=== PATIENT | female | born 2000 | race Caucasian/White ===

== ENCOUNTER 2020-07-15 22:20 | Emergency (ER) | payer OTHER, SELFPAY ==
[2020-07-15 22:21] VITALS: BP 136/85; PULSE 102; RESP 15; TEMP 37.2; O2SAT 98; BMI 19.1
[2020-07-15] MEDS: Lidocaine 1% (20 ml mdv) 20 ML Vial INFILT (22:44)
--- NOTE | 2020-07-15 22:44 | ED.VIS.LOWEX ---
HPI History of Present Illness Chief Complaint: Foreign Body Informant: patient Occured/Mechanism Mechanism/Context: Yes blunt trauma Onset/Context/Timing Onset: Today Context: Sudden Onset Timing: Continuous Narrative Narrative: Patient presents with splinter in her knee. Patient is otherwise healthy. She was at work today and walked into a pallet with some loose splinters. It went into her knee. She was unable to get it out and presented here. She has not tried anything for it. Tetanus Immunization: >10 years PFSH PFSH no medical history Home Medications No Known/Unobtainable [No Known Home Medications] 09/01/16 [History Last Taken Unknown] Allergy/AdvReac Type Severity Reaction Status Date / Time amoxicillin [From Augmentin] Allergy Unknown Verified 07/15/20 22:21 clavulanic acid Allergy Unknown Verified 07/15/20 22:21 [From Augmentin] no significant family history no surgical history Social History Smoking Status: Never smoker ROS ROS ED Constitutional Constitutional ED: Denies chills or fever(s) Eyes Eyes: Denies blurry vision or change in vision ENT ENT ED: Denies ear pain or sore throat Cardiovascular Cardiovascular: Denies chest pain or palpitations Respiratory/Chest Respiratory/Chest: Denies cough, dyspnea or dyspnea on exertion Gastrointestinal Gastrointestinal: Denies abdominal pain, nausea or vomiting Genitourinary Genitourinary ED: Denies dysuria or urinary frequency Musculoskeletal Musculoskeletal: Denies arthralgias or myalgias Integumentary Denies rash Neurologic Neurologic: Denies headache(s) or paresthesias Psychiatric Psychiatric: Denies anxiety or depression Endocrine Endocrinology: Denies polydipsia or polyuria Allergic/Immunologic Allergic/Immunologic ED: Denies urticaria EXAM Physical Exam Const Vital Signs: 07/15/20 22:21 Temperature 99.0 F Temperature Source Temporal Pulse Rate 102 H Respiratory Rate 15 Blood Pressure 136/85 H Blood Pressure Mean 102 Pulse Ox 98 Oxygen Delivery Method Room Air Positive well nourished and well developed General Appearance ED: well developed HEENT Reports normocephalic, head/scalp atraumatic and moist mucous membranes Eyes PERRL and EOMs intact bilaterally Neck no lymphadenopathy and supple General: Negative for tenderness Chest Wall inspection of chest normal Resp normal respiratory effort and clear to auscultation bilaterally Cardio regular rate, regular rhythm and no murmurs GI normal to inspection, nondistended, normoactive bowel sounds Palpation: Negative for tender, guarding or rebound tenderness present Back/Spine no CVA tenderness Cervical Spine: Negative for cervical spine tenderness Thoracic Spine / Upper Back: Negative for thoracic spinal tenderness Extremity normal to inspection General Extremety ED: Negative for tenderness General Extremity: other findings Other Details: Patient does have a small puncture wound overlying the patella of the left knee. There is minimal bleeding. Neuro oriented x3 and CN's II-XII intact bilaterally Neuro Narrative: No focal deficits appreciated. Sensorium / Orientation: alert Psych mental status grossly normal Skin no rashes or lesions noted, no wounds and skin turgor normal MDM MDM MDM Narrative Medical decision making narrative: Patient presents with splinter in the knee. The area was cleansed. It was anesthetized with 2 cc of 1% lidocaine without epinephrine. The splinter was actually lateral to the puncture wound. With an 11 blade, the incision was moved laterally. I was able to retract the splinter in 1 piece. Patient's tetanus will be updated. The wound was cleaned and dressed with bacitracin ointment. She was counseled on wound care and reasons to return. She will be discharged home. Impression 1. Splinter left knee with removal Discharge Plan Triage Chief Complaint: Foreign Body ED Provider: Bello Love Dx/Rx/DC Orders Instructions: ED Foreign Body Soft Tissue Prescriptions: No Action No Known Home Medications RF: 0 Primary Care Provider: Master Almanza Referrals: Master Almanza MD [Primary Care Provider] -
[2020-07-15] MEDS: Diphth,Pertuss(Acell),Tet Vac 0.5 ML Vial IM (22:48)
== END 2020-07-15 23:21 | disposition home or self-care (01) ==
LOC: ED 23:04
PROVIDERS: Emergency Provider Emergency Medicine
DX: S80.252A Superficial foreign body, left knee, initial encounter (principal); Z23 Encounter for immunization; W45.8XXA Other foreign body or object entering through skin, initial encounter; Y93.89 Activity, other specified; Y92.89 Other specified places as the place of occurrence of the external cause; Y99.0 Civilian activity done for income or pay
CPT/HCPCS: 10120; 90471; 90715; 99282

== ENCOUNTER 2024-05-08 02:19 | Emergency (ER) | payer BC, SELFPAY ==
[2024-05-08 02:21] VITALS: BP 132/89; PULSE 87; RESP 18; TEMP 36.8; O2SAT 100; BMI 18.8
--- NOTE | 2024-05-08 02:30 | CT_ITS ---
PROCEDURE: ABDOMEN/PELVIS W IV CONT ONLY REASON FOR EXAM: Low abdominal/pelvic pain, dizzy TECHNIQUE: Abdomen and pelvis CT with intravenous contrast. Coronal and sagittal reformatted images IV CONTRAST: 71 cc Isovue 370 COMPARISON: None. FINDINGS: Lung bases: Clear Liver: Unremarkable. Gallbladder: Unremarkable. Spleen: Unremarkable. Pancreas: Unremarkable. Adrenals: Unremarkable. Kidneys: Solitary right kidney. Punctate nonobstructing right intrarenal stone for example axial 67 and coronal 45. Left kidney is not present. Bladder: Unremarkable. Reproductive Organs: Appearance of cystic focus in the right adnexa measuring around 1.8 cm axial 126, coronal 50 with small to moderate amount of adjacent right pelvic free fluid. Intrauterine device appears centrally located. Bowel: Moderate amount of gas and stool within the colon without wall thickening. No bowel dilation. Appendix: Normal caliber appendix right pericolic gutter for example coronal 31 through 36 and axial 88. Lymph nodes: No suspicious lymph node enlargement. Vasculature: Major vascular structures are unremarkable. Peritoneum / Retroperitoneum: No free air. Bones: Unremarkable. CT/Abdomen/Pelvis W IV Cont ONLY IMPRESSION: 1.8 cm cystic focus right adnexa with small to moderate amount of adjacent righ t pelvic free fluid. May correlate further with pelvic ultrasound as warranted. Intrauterine device appears centrally located. Normal caliber appendix. Moderate amount of gas and stool within the colon without wall thickening. Solitary right kidney as above. One or more dose reduction techniques were used (e.g., Automated exposure contr ol, adjustment of the mA and/or kV according to patient size, use of iterative reconstruction technique). Reading Location: [id number]
--- NOTE | 2024-05-08 02:31 | ED.VIS.GI ---
HPI HPI - GI History of Present Illness Chief Complaint: Abd Pain Informant: patient and spouse/S.O. Narrative Narrative: Sudden lower abdominal/pelvic pain 30 minutes prior to arrival. States has ringing in ears afterwards. No urinary symptoms. No nausea or vomiting. No history ovarian issues. No history of similar. She has the IUD, thinks had a menstrual period earlier this month however is abnormal with the IUD. Allergies to Augmentin. Prior similar symptoms: No PFSH PFSH Medical History Asthma Home Medications ?Medication ?Instructions ?Recorded ?Last Taken ?Type No Known/Unobtainable [No Known 09/01/16 Unknown History Home Medications] Allergy/AdvReac Type Severity Reaction Status Date / Time amoxicillin (From Augmentin) Allergy Unknown Verified 05/08/24 02:20 clavulanic acid (From Allergy Unknown Verified 05/08/24 02:20 Augmentin) Social History Smoking Status: Never smoker ROS ROS ED Constitutional Constitutional ED: Denies chills, fever(s) or sweats ENT ENT ED: Denies sore throat Cardiovascular Cardiovascular: Denies chest pain, leg edema, palpitations or racing heartbeat Respiratory/Chest Respiratory/Chest: Denies cough, dyspnea or dyspnea on exertion Gastrointestinal Gastrointestinal: Reports abdominal pain; Denies diarrhea, nausea or vomiting Genitourinary Genitourinary ED: Denies dysuria, hematuria or urinary frequency Musculoskeletal Musculoskeletal: Denies back pain, extremity pain or neck pain Integumentary Denies rash or wounds Neurologic Neurologic: Denies headache(s), paresthesias or weakness EXAM Physical Exam Const Vital Signs: 05/08/24 02:21 Temperature 98.3 F Temperature Source Oral Pulse Rate 87 Respiratory Rate 18 Blood Pressure 132/89 H Blood Pressure Mean 103 Pulse Ox 100 Oxygen Delivery Method Room Air Positive well nourished and well developed General Appearance ED: well developed and NAD HEENT Reports moist mucous membranes normocephalic and atraumatic Eyes General Eye ED: Yes normal appearance of both eyes Neck full ROM Chest Wall Chest: Negative for tenderness Resp normal respiratory effort and normal air movement Effort and Inspection: symmetric chest movement; Negative for respiratory distress Cardio regular rate, regular rhythm and no murmurs Peripheral Pulses: pulses 2+ throughout GI normal to inspection, nondistended, normoactive bowel sounds GI Narrative: Tender lower abdomen/pelvic region. No guarding or rebound. Palpation: Negative for guarding or rebound tenderness present Extremity normal to inspection General Extremety ED: Negative for edema or tenderness General Extremity: Negative for edema Neuro oriented x3 and no sensory deficits noted Sensorium / Orientation: awake and alert Skin no rashes or lesions noted and no wounds MDM MDM MDM Narrative Medical decision making narrative: Interventions / MDM: Differential diagnosis: Ovarian cysts, pelvic pain Diagnosis considered but do not suspect: Appendicitis, CT negative. No clinical ovarian torsion. Obstructive kidney stone, however CT negative. My EKG interpretation: N/A Imaging independently reviewed and interpreted by myself: CT abdomen pelvis IV contrast: 1.87 right ovarian cyst pelvic free fluid. Normal appendix. Right sided nephrolithiasis punctate lesions no obstruction noted. External documents reviewed: N/A Test considered but not ordered:N/A ED course: Vital stable nontoxic nonsurgical abdomen. Lower abdominal/pelvic pain. She has IUD. IV established for basic labs and urine. hCG ordered. Will order CT abdomen pelvis IV contrast for further evaluation. IV Toradol ordered. 0400: Clinically improving symptoms labs stable urine negative. CT scan right ovarian cyst 1.8 cm with free fluid. Nonobstructing right kidney stones punctate lesions. Normal appendix. Urine small leukocytes 1+ bacteria, no urine symptoms. Urine culture sent. Discussed results with patient significant other. With her solitary kidney discussed using Tylenol up to 1 g every 6 hours. She does have a poacher wringer operator Dr. Breen to follow-up with. All her questions were answered. Re-evaluation: stable Disposition discussed with patient/family/significant other: Patient and significant other. Case discussed with consulting clinician: N/A This note was generated with [employer] dictation software. It may contain incorrect words, spelling, and punctuation that were not noted in checking the note before signing. Lab Data Attestation: I reviewed the patient's lab results. Labs: Laboratory Results - last 24 hr 05/08/24 05/08/24 02:26 02:38 WBC 10.9 RBC 4.57 Hgb 15.0 Hct 41.7 MCV 91.2 MCH 32.8 H MCHC 36.0 RDW Std Deviation 39.5 RDW Coeff of Jesse 11.9 Plt Count 174 MPV 11.1 Immature Gran % (Auto) 0.200 Neut % (Auto) 50.8 Lymph % (Auto) 37.7 Fisher % (Auto) 5.1 Eos % (Auto) 5.6 H Baso % (Auto) 0.6 Absolute Neuts (auto) 5.5 Absolute Lymphs (auto) 4.10 Nucleated RBC % 0 Sodium 138 Potassium 3.5 Chloride 106 Carbon Dioxide 24.0 Anion Gap 8 BUN 17 Creatinine 0.78 Estim Creat Clear Calc 78.67 Est GFR (MDRD) Af Amer 114 Est GFR (MDRD) Non-Af 95 BUN/Creatinine Ratio 21.7 H Glucose 113 H Calcium 8.8 Serum , Qual NEGATIVE Urine Color Yellow Urine Clarity Clear Urine pH 6.0 Ur Specific [place] 1.020 Urine Protein 100 H Urine Glucose (UA) Normal Urine Ketones Negative Urine Occult Blood Negative Urine Nitrite Negative Urine Bilirubin Negative Urine Urobilinogen Normal Ur Leukocyte Esterase 25 H Urine RBC 0 SEEN Urine WBC 0 SEEN Ur Squamous Epith Cells 0-5 SEEN Urine Bacteria 1+ Urine Mucus 0 SEEN Radiography Diagnostic Testing: Clinical Impression(s) from Imaging Studies Abdomen/Pelvis CT 05/08/24 02:30 IMPRESSION: 1.8 cm cystic focus right adnexa with small to moderate amount of adjacent right pelvic free fluid. May correlate further with pelvic ultrasound as warranted. Intrauterine device appears centrally located. Normal caliber appendix. Moderate amount of gas and stool within the colon without wall thickening. Solitary right kidney as above. One or more dose reduction techniques were used (e.g., Automated exposure control, adjustment of the mA and/or kV according to patient size, use of iterative reconstruction technique). Reading Location: [facility] Discharge Plan Triage Chief Complaint: Abd Pain ED Provider: Jay Toledo Dx/Rx/DC Orders Clinical Impression: Ovarian cyst, Pelvic pain, Right nephrolithiasis Instructions: ED Ovarian Cyst Prescriptions: No Action No Known Home Medications Stand Alone Forms: ED Work / School Excuse Primary Care Provider: Care Physician,No Primary Referrals: Terrie Preciado MD [Med Staff - Active Staff] - 1-2 Weeks Care Physician,No Primary [Primary Care Provider] - Activity Restrictions/Additional Instructions: CT scan normal appendix. You have punctate stones inside the right kidney nonobstructive. This does not cause pain symptoms. There is no obstructive stones. You have a 1.8 cm right sided ovarian cyst with free fluid. Likely small rupture is causing your symptoms. With your history of single kidney on the right side, use Tylenol up to 1 g every 6 hours as needed. Follow-up with your poacher wringer operator. Print Language: Stateless Disposition Disposition: Home, Self Care
[2024-05-08 02:37] LABS: Absolute Neutrophil Count 5.5 X10^3/uL (2.0-7.7); Basophil# 0.07 X10^3/uL; Basophil% 0.6 % (0-1); Eosinophil# 0.61 X10^3/uL; Eosinophils% 5.6 % (0-5); Hematocrit 41.7 % (37-47); Lymphocyte % 37.7 % (19-41); Mean Corpuscular Hgb 32.8 pg (27.0-32.0); Mean Corpuscular Volume 91.2 fL (81-99); Mean Platelet Vol. 11.1 fl (6.2-12.0); Monocyte# 0.55 X10^3/uL; Monocyte% 5.1 % (0-10); NRBC Flagged by Analyzer 0 % (0-5); Neutrophil # 5.52 X10^3/uL (2.7-7.7); Neutrophil % 50.8 % (47-70); Platelet Count 174 K/mm3 (150-450); RBC Distribution Width CV 11.9 % (11.6-14.6); RBC Distribution Width SD 39.5 fl (35.1-43.9); Red Blood Count 4.57 M/mm3 (4.2-5.4); White Blood Count 10.9 K/mm3 (4.4-11.0)
[2024-05-08 02:42] LABS: Mucous, Urine 0 SEEN /hpf (<or=2+); White Blood Cells 0 SEEN /hpf (0-5)
[2024-05-08 02:43] LABS: Color, Urine Yellow (Yellow); Glucose, Dipstick Normal (Normal); Ketone-Dipstick Negative (Negative); Leukocyte Esterase-Dipstick 25 /ul (Negative); Nitrite-Dipstick Negative (Negative); Occult Blood-Urine Negative /ul (Negative); Protein-Dipstick 100 mg/dl (Negative); Urine Bilirubin Dipstick Negative (Negative); Urine Clarity Clear (Clear); Urine Urobilinogen Normal (Normal)
[2024-05-08] MEDS: 0.9% Normal Saline (500mL Bag) 500 ML 1000 ML IV (02:43)
[2024-05-08] MEDS: Ketorolac 15 MG/ML Vial IV (02:43)
[2024-05-08 02:49] LABS: Anion Gap 8 (5-15); BUN 17 mg/dL (7-18); BUN/Creat Ratio 21.7 RATIO (10-20); Calcium,Total 8.8 mg/dL (8.5-10.1); Chloride 106 mmol/L (98-107); Creatinine, Serum 0.78 mg/dL (0.55-1.02); EST Glomerular Filtration Rate 95 mL/min (>60); Est Glom Filt Rate - Afr Amer 114 mL/min (>60); Estimated Creatinine Clearance 78.67 ml/min; Glucose 113 mg/dL (74-106); Potassium 3.5 mmol/L (3.5-5.1); Sodium Level 138 mmol/L (136-145)
[2024-05-08 03:03] LABS: Internal QC Validated? YES +Cl - CLEAR BKGD; Pregnancy, Serum, hCG Quali. NEGATIVE Negative
[2024-05-08 03:07] LABS: Bacteria 1+ /hpf (None Seen); Red Blood Cells-Urine 0 SEEN /hpf (0-5); Squamous Epithelial Cells - UA 0-5 SEEN /hpf (5-10)
== END 2024-05-08 04:15 | disposition home or self-care (01) ==
PROVIDERS: Emergency Provider Emergency Medicine; Visit Provider Emergency Medicine
DX: N83.201 Unspecified ovarian cyst, right side (principal); Q60.0 Renal agenesis, unilateral; Z97.5 Presence of (intrauterine) contraceptive device; J45.909 Unspecified asthma, uncomplicated; N20.0 Calculus of kidney; R10.2 Pelvic and perineal pain
CPT/HCPCS: 74177; 80048; 81001; 84703; 85025; 87086; 96361; 96374; 99283; Q9967; A4216